=== PATIENT | female | born 1990 | race Caucasian/White ===

== ENCOUNTER 2017-11-22 02:34 | Inpatient (IN) ==
[2017-11-22 03:04] LABS: Appearance,Urine CLEAR (Clear); Bilirubin,Urine Negative (Negative); Blood, Urine Negative (Negative); Color,Urine YELLOW (Yellow); Glucose,Urine (UA) Negative (Negative); Ketones,Urine Negative (Negative); Leukocyte Esterase,Urine Negative (Negative); Microscopic, Urine URINE MICROSCOPIC (MICROSCOPIC); PH,Urine 5.5 (5.0-8.5); Protein,Urine Negative (Negative); Specific Gravity, Urine >= 1.030 (1.005-1.030); Urobilinogen,Urine 0.2 EU/dl (0.2)
[2017-11-22 03:14] LABS: Basophils % 0.2 % (0.1-2.0); Hematocrit 36.7 % (37.0-47.0); Hemoglobin 12.2 g/dL (12.2-16.2); Lymphocytes # 1.1 K/mm3 (0.7-4.5); Lymphocytes % 6.4 K/mm3 (10-50); Mean Corpuscular HGB Conc 33.3 g/dL (31.8-35.4); Mean Corpuscular Hemoglobin 28.5 pg (27.0-31.2); Mean Corpuscular Volume 85.7 fl (81-99); Monocytes # 0.4 K/mm3 (0.1-1.0); Monocytes % 2.2 % (1.7-9.3); Neutrophils # 16.3 K/mm3 (1.8-7.8); Neutrophils % 91.2 % (37.0-80.0); Platelet Count 275 K/mm3 (142-424); Red Blood Count 4.29 M/mm3 (4.20-5.40); Red Cell Distribution Width 14.7 % (11.5-17.5); White Blood Count 17.9 K/mm3 (4.8-10.8)
[2017-11-22 03:28] LABS: Bacteria,Urine 2+ /lpf; Mucus,Urine 1+ /lpf; Squamous Epithelial Cell,Urine Occasional #/hpf (0-5)
[2017-11-22 03:38] LABS: Albumin Level 3.6 gm/dL (3.4-5.0); Albumin/Globulin Ratio 1.3 (1.1-1.8); Anion Gap 8.9 mEq/L (5-15); Bilirubin,Total 0.2 mg/dL (0.2-1.0); Calcium 8.4 mg/dL (8.5-10.1); Globulin 2.7 gm/dl (1.3-3.2); Potassium 3.9 mmoL/L (3.5-5.1); Total Protein,Serum 6.3 gm/dL (6.4-8.2)
[2017-11-22 04:18] LABS: Anisocytosis 1+; Lymphocytes % 3 % (10-50); Neutrophils % 96 % (42-76); Total Cells Counted 100
--- NOTE | 2017-11-22 04:55 | Emergency Department Note ---
ED Disposition Clinical Impression: Pelvic mass in female Disposition: Admitted as Observation Condition on Discharge: Serious Instructions: DI for Acute Abdomen - Critical Care Critical Care Time: No Attestation: On 11/22/17, the high probability of a clinically significant, sudden or life threatening deterioration of the following system(s) required my full and direct attention, intervention and personal management. The time I documented below is in addition to time spent performing reported procedures but includes the following listed in this critical care notation. Medical Decision Making - Medical Records Medical records reviewed: Yes: I reviewed the patient's medical records. - Jonny Inquiry Pt receiving controlled substance: No Vital Signs: 11/22/17 02:39 Temperature 97.7 F Temperature Source Oral Pulse Rate [Right Brachial] 87 Respiratory Rate 16 Blood Pressure [Right Arm] 112/61 Blood Pressure Mean [Right Arm] 78 02 Sat by Pulse Oximetry 96 - Lab Data Lab results reviewed: Yes: I reviewed the patient's lab results. Lab Results 11/22/17 02:45: Urine Color Yellow, Urine Appearance Clear, Urine pH 5.5, Ur Specific [place] >= 1.030, Urine Protein Negative, Urine Glucose (UA) Negative, Urine Ketones Negative, Urine Blood Negative, Urine Nitrate Negative, Urine Bilirubin Negative, Urine Urobilinogen 0.2, Ur Leukocyte Esterase Negative, Urine WBC 3-5, Ur Squamous Epith Cells Occasional, Urine Bacteria 2+, Urine Mucus 1+ 11/22/17 02:45: Urine HCG, Qual Negative 11/22/17 03:09: WBC 17.9 H, RBC 4.29, Hgb 12.2, Hct 36.7 L, MCV 85.7, MCH 28.5, MCHC 33.3, RDW 14.7, Plt Count 275, MPV 9.0, Neut % (Auto) 91.2 H, Lymph % (Auto ) 6.4 L, [place] % (Auto) 2.2, Eos % (Auto) 0.0 L, Baso % (Auto) 0.2, Neut # (Auto ) 16.3 H, Lymph # (Auto) 1.1, [place] # (Auto) 0.4, Eos # (Auto) 0.0, Baso # (Auto ) 0.0, Total Counted 100, Neutrophils % (Manual) 96 H, Lymphocytes % (Manual) 3 L, Basophils % (Manual) 1.0, Platelet Estimate Normal, Anisocytosis 1+ 11/22/17 03:09: Sodium 135 L, Potassium 3.9, Chloride 103, Carbon Dioxide 27, Anion Gap 8.9, BUN 11, Creatinine 0.85, Estimated Creat Clear 93, Estimated GFR 81, Est GFR ( Amer) 99, Glucose 150 H, Calcium 8.4 L, Total Bilirubin 0.2 , AST 9 L, ALT 14, Alkaline Phosphatase 58, Total Protein 6.3 L, Albumin 3.6, Globulin 2.7, Albumin/Globulin Ratio 1.3, Amylase 45 11/22/17 03:09: Lipase 76 Result diagrams: 11/22/17 03:09 11/22/17 03:09 Orders (Tests/Meds): ED MEDICATIONS Discontinued Medications Generic Name Dose Route Start Last Admin Trade Name Freq PRN Reason Stop Dose Admin Sodium Chloride 1,000 mls @ 999 mls/hr 11/22/17 03:00 11/22/17 03:09 Sod Chlor 0.9% 1000ml Bag IV 11/22/17 04:00 999 mls/hr .Q1H1M TRINITY Administration Iopamidol 75 ml 11/22/17 03:55 11/22/17 03:57 [id number]; 75ml Vial IV 11/22/17 03:56 75 ml ONCE ONE Administration Protocol Ketorolac Tromethamine 30 mg 11/22/17 02:49 11/22/17 03:09 Toradol 30mg/Ml Vial IV 11/22/17 02:50 30 mg ONCE ONE Administration Sodium Chloride 10 ml 11/22/17 03:55 11/22/17 03:56 Rad-Saline Flush 10ml Syringe IV 11/22/17 03:56 10 ml ONCE ONE Administration ORDERS Category Date Time Status CT abdomen pelvis w con Stat Cat Scan 11/22/17 02:49 Taken Urine Culture Stat Micro 11/22/17 02:45 Received - CT Data CT Scan: Abdomen, Pelvis Time Received: 04:[address] Reviewed: Yes: I have viewed the radiologist's interpretation Preliminary Findings: Abnormal (lt ovarian mass) - Physician Consults Physician Consulted: devon Reason -: Admission Female Urogenital HPI - General Chief complaint: Abdominal Pain Stated complaint: stomach pain,no vomiting Time Seen by Provider: 11/22/17 02:40 Mode of Arrival: Wheelchair Source of Information: Patient Limitations: No Limitations Description of Symptoms (Recalled from ER Triage Doc. by RN): REPORTS SHARP STOMACH PAINS IN SAVITA LOWER QUADS, MORE PAIN ON THE RIGHT. REPORTS SHE HAS NOT HAD A TUBAL OR HYSTERECTOMY, AND STATES SHE HAD A TEST AT HOME RECENTLY THAT WAS NEGATIVE. SHE REPORTS THAT SHE HAS NOT ASSOCIATED VOMITING OR NAUSEA OR DIARRHEA. - History of Present Illness HPI Narrative: acute onset of lt sided abd pain /pelvic pain tonight - no fever or vaginal bleeding MD Complaint: pelvic pain Onset (ago): hour(s) Location: LLQ Severity: moderate Quality: sharp Relieving factors: none Exacerbating factors: none : unsure Associated symptoms: denies other symptoms - Related Data Home Medications Medication Instructions Recorded Confirmed No Known Home Medications 11/22/17 11/22/17 Allergies Allergy/AdvReac Type Severity Reaction Status Date / Time No Known Allergies Allergy Verified 11/22/17 03:10 [facility] History I have reviewed the patient's past medical history: Yes Medical History: Denies:: Cancer, Diabetes Mellitus Type 1, Diabetes Mellitus Type 2, MRSA Amputation: No Fractures: No - Social History Alcohol Intake: never - Psychiatric History Expresses thoughts of harming self/others: None Suicide Plan Description: No Plan ROS Obtained: Yes All systems reviewed & no additional complaints - Constitutional Constitutional: Denies fever(s) - Eyes Eyes: Denies change in vision - ENT Ears, Nose, Mouth, and Throat: Denies sore throat - Cardiovascular Cardiovascular: Denies chest pain - Respiratory Respiratory: No cough - Gastrointestinal Gastrointestingal: Reports: abdominal pain, nausea. Denies: black, tarry stools , vomiting - Genitourinary Female Genitourinary: Reports as per HPI, Denies abnormal vaginal bleeding, Denies hematuria, Reports pelvic pain, Denies urinary frequency - Musculoskeletal Musculoskeletal: Denies joint pain - Integumentary/Breasts Skin/Breast: Denies rash - Neurologic Neurologic: Denies headache(s), Denies seizure-like activity Physical Exam - General General appearance: in no apparent distress - Head Head exam: normocephalic - Eye Eye exam: Present: PERRL, EOMI - ENT ENT exam: Present: mucous membranes moist - Neck Neck exam: Present: trachea midline - Respiratory Respiratory exam: Present: normal lung sounds bilaterally. Absent: respiratory distress - Cardiovascular Cardiovascular exam: Present: regular rate - Abdominal Exam Abdominal exam: Present: soft, tenderness Abdominal tenderness: Present: LUQ, moderate - Extremities Exam Extremities exam: Present: full ROM - Back Exam Back exam: Absent: CVA tenderness (L) - Neurological Exam Neurological exam: Present: alert, oriented X3, CN II-XII intact - Psychiatric Psychiatric exam: Present: normal affect - Skin Skin exam: Absent: rash
[2017-11-22 06:02] LABS: Basophils % 0.1 % (0.1-2.0); Eosinophils % 0.1 % (0.1-12.0); Hematocrit 28.8 % (37.0-47.0); Lymphocytes # 1.1 K/mm3 (0.7-4.5); Lymphocytes % 6.7 K/mm3 (10-50); Mean Corpuscular HGB Conc 33.6 g/dL (31.8-35.4); Mean Corpuscular Hemoglobin 29.4 pg (27.0-31.2); Mean Corpuscular Volume 87.6 fl (81-99); Mean Platelet Volume 9.8 fl (7.4-10.4); Monocytes # 0.3 K/mm3 (0.1-1.0); Monocytes % 2.1 % (1.7-9.3); Neutrophils # 14.1 K/mm3 (1.8-7.8); Neutrophils % 90.9 % (37.0-80.0); Platelet Count 238 K/mm3 (142-424); Red Blood Count 3.29 M/mm3 (4.20-5.40); Red Cell Distribution Width 14.7 % (11.5-17.5); White Blood Count 15.6 K/mm3 (4.8-10.8)
[2017-11-22 06:08] LABS: Hemoglobin 9.7 g/dL (12.2-16.2)
--- NOTE | 2017-11-22 06:19 | Progress Note ---
Internal Medicine - PN: Subj *Date: 11/22/17 *Time: 06:12 (Was admitted to the emergency room early this morning with severe lower abdominal pain. (Please refer to the emergency room history and physical. ) Her white count in the emergency room was 17.9, with a left shift. She was afebrile. She states that she had a laparoscopy 8 years ago for an ovarian cyst (both ovaries remain in situ), and that she had a normal vaginal delivery in [facility] 18 months ago. She is currently using no contraception, but her test is negative. Her last normal menstrual period was about 4 weeks ago. She began having some mild intermittent lower abdominal pain a few days ago, and this became severe last evening at 2330. Ultimately she came to the emergency room. CT in the emergency room revealed an 8.8 cm complex midline hemorrhagic pelvic mass (likely ovarian, but laterality could not be determined). Her initial hemoglobin in the emergency room was 12.3 g; is now 9.7 g. Her blood pressure is low (90s over 40s). Her pulse rate is 103. Her abdomen is somewhat distended and there is guarding throughout her lower abdomen. Rebound tenderness in the midline. Intravenous antibiotics ( ampicillin, gentamicin, and clindamycin) have been ordered. I discussed with the patient the probable need for surgery, which would likely entail an exploratory laparotomy with possible unilateral salpingo-oophorectomy. She understands risks and benefits of this procedure and consents to it.) Exam Vital signs and Labs for Last 24 Hours: Temp Pulse Resp BP Pulse Ox 97.7 F 79 14 122/62 99 11/22/17 05:05 11/22/17 05:05 11/22/17 05:05 11/22/17 05:05 11/22/17 05:00 Laboratory Results - last 24 hr 11/22/17 02:45: Urine Color Yellow, Urine Appearance Clear, Urine pH 5.5, Ur Specific [place] >= 1.030, Urine Protein Negative, Urine Glucose (UA) Negative, Urine Ketones Negative, Urine Blood Negative, Urine Nitrate Negative, Urine Bilirubin Negative, Urine Urobilinogen 0.2, Ur Leukocyte Esterase Negative, Urine WBC 3-5, Ur Squamous Epith Cells Occasional, Urine Bacteria 2+, Urine Mucus 1+ 11/22/17 02:45: Urine HCG, Qual Negative 11/22/17 03:09: WBC 17.9 H, RBC 4.29, Hgb 12.2, Hct 36.7 L, MCV 85.7, MCH 28.5, MCHC 33.3, RDW 14.7, Plt Count 275, MPV 9.0, Neut % (Auto) 91.2 H, Lymph % (Auto ) 6.4 L, [place] % (Auto) 2.2, Eos % (Auto) 0.0 L, Baso % (Auto) 0.2, Neut # (Auto ) 16.3 H, Lymph # (Auto) 1.1, [place] # (Auto) 0.4, Eos # (Auto) 0.0, Baso # (Auto ) 0.0, Total Counted 100, Neutrophils % (Manual) 96 H, Lymphocytes % (Manual) 3 L, Basophils % (Manual) 1.0, Platelet Estimate Normal, Anisocytosis 1+ 11/22/17 03:09: Sodium 135 L, Potassium 3.9, Chloride 103, Carbon Dioxide 27, Anion Gap 8.9, BUN 11, Creatinine 0.85, Estimated Creat Clear 93, Estimated GFR 81, Est GFR ( Amer) 99, Glucose 150 H, Calcium 8.4 L, Total Bilirubin 0.2 , AST 9 L, ALT 14, Alkaline Phosphatase 58, Total Protein 6.3 L, Albumin 3.6, Globulin 2.7, Albumin/Globulin Ratio 1.3, Amylase 45 11/22/17 03:09: Lipase 76 11/22/17 05:48: WBC 15.6 H, RBC 3.29 L, Hgb 9.7 L D, Hct 28.8 L, MCV 87.6, MCH 29.4, MCHC 33.6, RDW 14.7, Plt Count 238, MPV 9.8, Neut % (Auto) 90.9 H, Lymph % (Auto) 6.7 L, [place] % (Auto) 2.1, Eos % (Auto) 0.1, Baso % (Auto) 0.1, Neut # ( Auto) 14.1 H, Lymph # (Auto) 1.1, [place] # (Auto) 0.3, Eos # (Auto) 0.0, Baso # ( Auto) 0.0 11/22/17 05:48: Crossmatch (AHG) See Detail I & O for Last 24 hours: Intake & Output 11/19/17 11/20/17 11/21/17 11/22/17 11:59 11:59 11:59 11:59 Intake Total 1200 / 1200 Balance 1200 / 1200 Weight 128 lb
[2017-11-22 06:53] LABS: Anion Gap 13.4 mEq/L (5-15); Potassium 4.4 mmoL/L (3.5-5.1)
--- NOTE | 2017-11-22 07:21 | Progress Note ---
[facility] Anesthesia Checklist - Patient Identification Patient Identification: Arm Band - Structural Data Admitted From: Inpatient Planned Operative Procedure/s: exploratory laparotomy Consent for Planned Operative Procedure(s) Verified: Yes Verified Documents: Surgical Consent, History and Physical - NPO Status Verified Time NPO: 00:00 - Additional verifications Anesthesia Reactions: No - Airway Assessment C-Spine Mobility Assessed: Yes (mp2) TMJ Mobility Assessed: Yes Dentition: Dentures-good fit (upper) - Neurological Assessment Level of Consciousness: Awake, Alert - Anesthesia Plan Anesthesia Risk discussed: Yes Anesthesia Plan: Verified ASA Class: II (e) Anesthesia Type: General [facility] Anesthesia HX I have reviewed the patient's past medical history: Yes Medical History: Denies:: Cancer, Diabetes Mellitus Type 1, Diabetes Mellitus Type 2, MRSA Other Medical History: Reports: Other (smoker) Other Surgeries: Yes: Other (ovarian cystectomy, right groin abcess) Amputation: No Fractures: No
--- NOTE | 2017-11-22 08:22 | Operative Note ---
Date of procedure: 11/22/17 Pre-op Diagnosis:: 1. Hemorrhagic adnexal mass. 2. Pelvic pain. Post-op Diagnosis:: 1. Pelvic pain. 2. Massive hemoperitoneum. 3. Hemorrhagic left ovarian cyst, leaking. 4. Right ovarian cyst. Procedure performed:: 1. Exploratory laparotomy. 2. Evacuation of massive hemoperitoneum. 3. Left ovarian cystectomy. 4. Aspiration of right ovarian cyst. 5. Intraoperative transfusion. Surgeon:: Keith Ricketts MD Biopsychologist(s):: RAJESH Lebron [address] TECHNICIAN:: Other (YAMILET Nova) Anesthesia: GETA Estimated blood loss (mL): 1,500 (Transfusion of 2 units of packed cells.) Operative findings:: 1. Massive hemoperitoneum. 2. Small right ovarian cyst. 3. Leaking hemorrhagic left ovarian cyst. Operative note:: After the patient was prepped and draped in usual fashion and general anesthesia was administered, a low Pfannenstiel incision was made across midline, and the fat and fascia was in usual fashion, bleeders being clamped and coagulated along the way. The peritoneum was entered with Metzenbaum scissors, and extended above and below. A large amount of blood and clots extruded. A self-retaining Ernesto retractor with bladder blade was placed. A massive hemoperitoneum (1500 cc) consisting of free blood and clots was evacuated, both manually and by suction. The uterus was of normal size and configuration. The right tube and ovary appeared normal, save for a 3 cm clear cyst at the distal pole of the right ovary. This was aspirated, and the puncture site fulgurated. On the left side, a 10-12 cm thin-walled hemorrhagic cyst was present at the distal pole of the ovary. The tube appeared normal. The cyst was able to be peeled away from the ovarian cortex, and submitted to pathology. Aerobic and anaerobic cultures were taken of the cul-de-sac fluid. There was still a large amount of residual blood in the upper abdomen, and this was suctioned. Because of oozing, a #10 flat Joss-Hickey drain was placed in the cul-de-sac, and brought out through a separate stab wound to the left of and above the Pfannenstiel incision. It was sewn in place, and attached to a grenade. The left ovary was oversewn with a running unlocked suture of 3-0 Vicryl, and was felt to be hemostatic. A piece of Interceed was placed over the ovary to obviate the formation of adhesions; however, this would not stay in place due to excessive moisture, and was removed. There was no other pathology noted. The peritoneum was grasped with 3 Marcella clamps, and closed with a running semi- locked suture of 0 Vicryl. The muscle was approximated with a running unlocked suture of 0 Vicryl. The fascia was closed with a running locked suture of #1 Vicryl. The subcutaneous fat and Lorraine's fascia were closed with a running locked suture of 2-0 Vicryl. The skin was closed with a subcuticular suture of 3-0 Vicryl, and appropriately dressed. The urine was clear in the Rios catheter. The sponge and needle count was ultimately correct. The estimated blood loss was 1500 cc. Transfusion of packed cells was begun in the OR and a second unit will be given in PACU. The wound was appropriately dressed. The EMMETT drain was draining well. The patient tolerated the procedure well, and will taken to PACU in stable condition. Condition: stable Disposition: PACU Specimens:: 1. Left ovarian cyst. 2. Thick cultures. Complications:: None
--- NOTE | 2017-11-22 08:39 | Progress Note ---
[facility] Anesthesia Record Part I Intake, IV Amount: 700 Estimated blood loss (mL): 1,500 Urine output (mL): 300 Blood Products used (#): none Blood Pressure: 121/62 SaO2: 99 Pulse Rate: 123 Respiratory Rate: 18 Temperature: 97.8 F Patient is:: Awake, Stable Stable to PACU at:: 08:30
--- NOTE | 2017-11-22 08:40 | Progress Note ---
[facility] Anesthesia Record Part II Discharge Time: 09:00 Destination: Medical Surgical Department PACU nurse assessment reviewed?: Yes Patient Condition:: Good Anesthesia Complications:: None
[2017-11-22 09:36] LABS: Hematocrit 32.9 % (37.0-47.0); Hemoglobin 10.9 g/dL (12.2-16.2)
--- NOTE | 2017-11-22 12:06 | Pharmacy Consult Notes ---
[facility] Pharmacy VTE Monitoring - Patient Demographics Admission date: 11/22/17 Report Date: 11/22/17 Time: 12:05 Allergies/Adverse Reactions: Patient Allergies No Known Allergies Allergy (Verified 11/22/17 03:10) Height: 1.6 m Weight: 58.06 kg Patient Problems: Current Active Problems Pelvic mass in female (Acute) - VTE Risk Labs: VTE Related Lab Results Hgb 10.9 g/dL (12.2-16.2) L D 11/22/17 08:55 Hct 32.9 % (37.0-47.0) L 11/22/17 08:55 Plt Count 238 K/mm3 (142-424) 11/22/17 05:48 BUN 10 mg/dL (7-18) 11/22/17 05:48 Creatinine 0.73 mg/dL (0.55-1.02) 11/22/17 05:48 Estimated Creat Clear 108 mL/min (0-300) 11/22/17 05:48 Was VTE Risk Assessment Performed: Yes VTE Score: 0 VTE Risk Level: Very Low Risk - Prophylaxis VTE Prophylaxis Ordered?: Yes Types of VTE Prophylaxis: IPCS Thigh High Location of Applied Device: Bilateral Lower Extremeties - VTE Diagnosis Confirmed Treatment or plan recommended: Continue Current Treatment
[2017-11-22 12:37] LABS: Hematocrit 33.4 % (37.0-47.0); Hemoglobin 11.3 g/dL (12.2-16.2)
--- NOTE | 2017-11-22 13:38 | Progress Note ---
Internal Medicine - PN: Subj *Date: 11/22/17 *Time: 13:37 (This is day of surgery. The patient is afebrile. Vital signs are stable. She feels much better. Abdomen is soft. Surgery has been explained to the patient. Hemoglobin is greater than 11 g after 2 units of packed cells. Impression: Stable.) Exam Vital signs and Labs for Last 24 Hours: Temp Pulse Resp BP Pulse Ox 99.0 F 99 H 18 98/49 98 11/22/17 13:15 11/22/17 13:15 11/22/17 13:15 11/22/17 13:15 11/22/17 13:15 Laboratory Results - last 24 hr 11/22/17 02:45: Urine Color Yellow, Urine Appearance Clear, Urine pH 5.5, Ur Specific [place] >= 1.030, Urine Protein Negative, Urine Glucose (UA) Negative, Urine Ketones Negative, Urine Blood Negative, Urine Nitrate Negative, Urine Bilirubin Negative, Urine Urobilinogen 0.2, Ur Leukocyte Esterase Negative, Urine WBC 3-5, Ur Squamous Epith Cells Occasional, Urine Bacteria 2+, Urine Mucus 1+ 11/22/17 02:45: Urine HCG, Qual Negative 11/22/17 03:09: WBC 17.9 H, RBC 4.29, Hgb 12.2, Hct 36.7 L, MCV 85.7, MCH 28.5, MCHC 33.3, RDW 14.7, Plt Count 275, MPV 9.0, Neut % (Auto) 91.2 H, Lymph % (Auto ) 6.4 L, [place] % (Auto) 2.2, Eos % (Auto) 0.0 L, Baso % (Auto) 0.2, Neut # (Auto ) 16.3 H, Lymph # (Auto) 1.1, [place] # (Auto) 0.4, Eos # (Auto) 0.0, Baso # (Auto ) 0.0, Total Counted 100, Neutrophils % (Manual) 96 H, Lymphocytes % (Manual) 3 L, Basophils % (Manual) 1.0, Platelet Estimate Normal, Anisocytosis 1+ 11/22/17 03:09: Sodium 135 L, Potassium 3.9, Chloride 103, Carbon Dioxide 27, Anion Gap 8.9, BUN 11, Creatinine 0.85, Estimated Creat Clear 93, Estimated GFR 81, Est GFR ( Amer) 99, Glucose 150 H, Calcium 8.4 L, Total Bilirubin 0.2 , AST 9 L, ALT 14, Alkaline Phosphatase 58, Total Protein 6.3 L, Albumin 3.6, Globulin 2.7, Albumin/Globulin Ratio 1.3, Amylase 45 11/22/17 03:09: Lipase 76 11/22/17 05:48: WBC 15.6 H, RBC 3.29 L, Hgb 9.7 L D, Hct 28.8 L, MCV 87.6, MCH 29.4, MCHC 33.6, RDW 14.7, Plt Count 238, MPV 9.8, Neut % (Auto) 90.9 H, Lymph % (Auto) 6.7 L, [place] % (Auto) 2.1, Eos % (Auto) 0.1, Baso % (Auto) 0.1, Neut # ( Auto) 14.1 H, Lymph # (Auto) 1.1, [place] # (Auto) 0.3, Eos # (Auto) 0.0, Baso # ( Auto) 0.0 11/22/17 05:48: Sodium 139, Potassium 4.4, Chloride 107, Carbon Dioxide 23, Anion Gap 13.4, BUN 10, Creatinine 0.73, Estimated Creat Clear 108, Estimated GFR 97, Est GFR ( Amer) 118, Glucose 126 H, Calcium 7.0 L D 11/22/17 05:48: Blood Type A Positive, Antibody Screen Negative, Crossmatch (AHG ) See Detail 11/22/17 08:55: Blood Type Confirm A Positive 11/22/17 08:55: Hgb 10.9 L D, Hct 32.9 L 11/22/17 12:21: Hgb 11.3 L, Hct 33.4 L I & O for Last 24 hours: Intake & Output 11/20/17 11/21/17 11/22/17 11/23/17 11:59 11:59 11:59 11:59 Intake Total 2320 / 2320 Output Total 575 / 575 75 / 75 Balance 1745 / 1745 -75 / -75 Weight 128 lb 128 lb
[2017-11-23 05:59] LABS: Hematocrit 28.8 % (37.0-47.0)
[2017-11-23 06:09] LABS: Hemoglobin 9.7 g/dL (12.2-16.2)
--- NOTE | 2017-11-23 07:35 | Progress Note ---
Internal Medicine - PN: Subj *Date: 11/23/17 *Time: 07:34 (This is postop day #1. The patient is afebrile. Vital signs stable. Wound clean. Abdomen soft. EMMETT drain drained 100 cc of watery fluid overnight. Her Rios is out and she has voided well. Hemoglobin dropped slightly to 9.7 g, but she is clinically stable. Plan is to increase diet and ambulate today.) Exam Vital signs and Labs for Last 24 Hours: Temp Pulse Resp BP Pulse Ox 98.3 F 83 18 95/53 98 11/22/17 19:30 11/22/17 19:30 11/22/17 19:30 11/23/17 06:45 11/22/17 19:30 Laboratory Results - last 24 hr 11/22/17 05:48: Blood Type A Positive, Antibody Screen Negative, Crossmatch (AHG ) See Detail 11/22/17 08:55: Blood Type Confirm A Positive 11/22/17 08:55: Hgb 10.9 L D, Hct 32.9 L 11/22/17 12:21: Hgb 11.3 L, Hct 33.4 L 11/23/17 05:49: Hgb 9.7 L D, Hct 28.8 L I & O for Last 24 hours: Intake & Output 11/20/17 11/21/17 11/22/17 11/23/17 11:59 11:59 11:59 11:59 Intake Total 2320 / 2320 1008 / 1008 Output Total 875 / 875 1795 / 1795 Balance 1445 / 1445 -787 / -787 Weight 128 lb 128 lb Microbiology Reports for the Last 24 Hours: Microbiology 11/22/17 02:45 Urine,Clean Catch Urine Culture - Final Multiple organisms, suggests contamination. 11/22/17 Unknown Peritoneal Fluid Gram Stain - Final
[2017-11-23 16:07] LABS: Hemoglobin 9.7 g/dL (12.2-16.2)
--- NOTE | 2017-11-24 06:43 | Progress Note ---
Internal Medicine - PN: Subj *Date: 11/24/17 *Time: 06:42 (This is postop day #2. The patient is afebrile. Vital signs stable. Wound clean. Abdomen soft. Hemoglobin stable at 9.7 g. She is eating and ambulating and passing flatus. Her EMMETT drain has been removed. The plan is to observe post drain removal and possibly discharge later today.) Exam Vital signs and Labs for Last 24 Hours: Temp Pulse Resp BP Pulse Ox 98.0 F 71 18 97/52 98 11/24/17 05:30 11/24/17 05:30 11/24/17 05:30 11/24/17 05:30 11/23/17 23:34 Laboratory Results - last 24 hr 11/23/17 16:00: Hgb 9.7 L, Hct 29.0 L I & O for Last 24 hours: Intake & Output 11/21/17 11/22/17 11/23/17 11/24/17 11:59 11:59 11:59 11:59 Intake Total 2320 / 2320 1008 / 1008 Output Total 875 / 875 1795 / 1795 85 / 85 Balance 1445 / 1445 -787 / -787 -85 / -85 Weight 128 lb 128 lb Microbiology Reports for the Last 24 Hours: Microbiology 11/22/17 Unknown Peritoneal Fluid Gram Stain - Final 11/22/17 Unknown Peritoneal Fluid Body Fluid Culture - Preliminary NO GROWTH AFTER 24 HOURS 11/22/17 02:45 Urine,Clean Catch Urine Culture - Final Multiple organisms, suggests contamination.
--- NOTE | 2017-11-24 12:26 | Progress Note ---
Internal Medicine - PN: Subj *Date: 11/24/17 *Time: 12:25 (The patient is afebrile. Vital signs stable. Wounds clean. Abdomen soft. Eating and ambulating and has had a bowel movement. She will be discharged today.) Exam Vital signs and Labs for Last 24 Hours: Temp Pulse Resp BP Pulse Ox 97.9 F 80 16 101/61 98 11/24/17 08:20 11/24/17 08:20 11/24/17 08:20 11/24/17 08:20 11/24/17 08:20 Laboratory Results - last 24 hr 11/23/17 16:00: Hgb 9.7 L, Hct 29.0 L I & O for Last 24 hours: Intake & Output 11/22/17 11/23/17 11/24/17 11/25/17 11:59 11:59 11:59 11:59 Intake Total 2320 / 2320 1008 / 1008 Output Total 875 / 875 1795 / 1795 85 / 85 Balance 1445 / 1445 -787 / -787 -85 / -85 Weight 128 lb 128 lb Microbiology Reports for the Last 24 Hours: Microbiology 11/22/17 Unknown Peritoneal Fluid Gram Stain - Final 11/22/17 Unknown Peritoneal Fluid Body Fluid Culture - Preliminary NO GROWTH AFTER 24 HOURS
--- NOTE | 2017-11-24 12:29 | Discharge Summary ---
General - General Admission date:: 11/22/17 Discharge date: 11/24/17 (This 27-year-old 1, para 1, Ab0 white female was admitted to the emergency room with severe lower abdominal pain and a large pelvic mass. test was negative. Her initial hemoglobin of 12.2 g drop to 9.2 g within a few hours, and she was taken to the operating room she underwent an exploratory laparotomy with evacuation of a massive hemoperitoneum (at least 1500 cc), with a left ovarian cystectomy and aspiration of a small right ovarian cyst. She was transfused 2 units of packed cells, and her hemoglobin stabilized at 9.7 g. Postoperatively, the patient is done well. She is eating and elevating, and has had a bowel movement. Her wounds are clean. Her EMMETT drain (placed at surgery) has been removed. She is discharged home on the second postoperative day on iron and vitamins, and on Percocet 5/ 325 (#20), 1 p.o. every 4-6 hours as needed pain. She is given appropriate instructions as to diet, exercise, and wound care, and she is to return the office in 2 weeks for follow-up. She is not a walker.) Objective Vital signs: Temp Pulse Resp BP Pulse Ox 97.9 F 80 16 101/61 98 11/24/17 08:20 11/24/17 08:20 11/24/17 08:20 11/24/17 08:20 11/24/17 08:20 Results Labs on day of discharge: Labs from last 24 hours 11/23/17 16:00 Hgb 9.7 L Hct 29.0 L Preliminary micro results at discharge 11/22/17 Unknown Body Fluid Culture - Preliminary Peritoneal Fluid NO GROWTH AFTER 24 HOURS Discharge Plan - Patient Discharge Instructions Patient Instructions: How to Care for a Surgical Wound, Exploratory Laparotomy - Follow up Plan Home Medications: Home Medications Medication Instructions Recorded Confirmed Type Amoxicillin [Amoxicillin 500mg 500 mg PO BID 11/22/17 11/22/17 History Cap] Erythromycin Base [Erythromycin 1 applicatio EYE-BOTH DIRECTED 11/22/1711/22 History 3.5gm opth oinment] Prescriptions/Medication Reconciliation: No Action Amoxicillin [Amoxicillin 500mg Cap] 500 mg PO BID Erythromycin Base [Erythromycin 3.5gm opth oinment] 1 applicatio EYE-BOTH DIRECTED
== END 2017-11-24 12:45 | disposition home or self-care (01) ==
LOC: ER 02:34 → OB 02:34 → OBSVTOIN 05:05 → OB 05:06
PROVIDERS: ADMIT Obstetrics & Gynecology; ATTEND Obstetrics & Gynecology

== ENCOUNTER → 2017-12-08 16:15 | Outpatient (CLI) | payer MEDICAID, SELFPAY ==
[2017-12-08 17:21] LABS: Hematocrit 38.6 % (37.0-47.0); Hemoglobin 12.7 g/dL (12.2-16.2)
== END ==
PROVIDERS: PCP Obstetrics & Gynecology; Visit Provider Obstetrics & Gynecology
DX: N83.209 Unspecified ovarian cyst, unspecified side (principal); Z48.89 Encounter for other specified surgical aftercare
CPT/HCPCS: 36415; 85014; 85018

== ENCOUNTER 2021-07-24 09:20 | Emergency (ER) | payer MEDICAID, SELFPAY ==
[2021-07-24 09:21] VITALS: BP 122/76; PULSE 101; RESP 16; TEMP 36.7; O2SAT 98; BMI 24.7
--- NOTE | 2021-07-24 09:50 | [facility].EDSKAF ---
ED Disposition Clinical Impression: Abscess of skin or subcutaneous tissue Qualifiers: Site of cutaneous abscess: extremity Site of cutaneous abscess of extremity: lower extremity Laterality: right Qualified Code(s): L02.415 - Cutaneous abscess of right lower limb Disposition: Home, Self-Care Condition on Discharge: Good Instructions: DI for Skin Abscess Prescriptions: Sulfamethoxazole/Trimethoprim [Bactrim DS tablet] 1 each PO BID #14 tab Transmission Status: Pending to [facility]/pharmacy #[id number] Referrals: Provider,Referral, [Primary Care Provider] - - Critical Care Critical Care Time: No Attestation: On 07/24/21, the high probability of a clinically significant, sudden or life threatening deterioration of the following system(s) required my full and direct attention, intervention and personal management. The time I documented below is in addition to time spent performing reported procedures but includes the following listed in this critical care notation. Medical Decision Making - Medical Records Medical records reviewed: Yes: I reviewed the patient's medical records. - Jonny Inquiry Pt receiving controlled substance: No Vital Signs: 07/24/21 09:21 Temperature 98.1 F Temperature Source Oral Pulse Rate [Radial] 101 H Respiratory Rate 16 Blood Pressure [Right Arm] 122/76 Blood Pressure Mean [Right Arm] 91 Blood Pressure Position [Right Arm] Sitting 02 Sat by Pulse Oximetry 98 Oxygen Delivery Method Room Air - Reevaluation(s) Time: 09:52 Reevaluation #1: Patient tolerated procedure well. Packing needs to be removed in 24 hours. Continue antibiotic therapy. Needs follow-up within 48 hours. Given strict return precautions. Verbalized understanding. Medical Decision Narrative: 31-year-old female presented to the emergency department with an abscess in the right groin. I did perform bedside ultrasound. She does have a area of loculated fluid collection. She will require incision and drainage. Skin/Abscess/FB HPI - General Chief complaint: Skin/Abscess/Foreign Body Stated complaint: possible abscess on right leg Time Seen by Provider: 07/24/21 09:30 Mode of Arrival: Ambulatory Limitations: No Limitations Description of Symptoms (Recalled from ER Triage Doc. by RN): TO ED PER PVT CAR WITH C/O ABSCESS RT GROIN AREA X 4 DAYS GETTING PROGRESSIVELY WORSE. DENIES ANY DRAINAGE. PT STATES HX OF SAME WITH LAST ONE ON LT SIDE APPROX 6 MONTHS AGO. STATES USING WARM COMPRESSES AT HOME WITH NO RELIEF. DENIES ANY FEVER, CHILLS, NAUSEA, VOMITING - History of Present Illness HPI narrative: Is a 31-year-old female presenting with an abscess to the right groin area. Patient has had a history of abscesses in the past before. She has had it for the last 4 days. She states that it started as a small bump it has grown since then. Is very tender to palpation. She has not had any discharge. Denies any fevers or chills. No chest pain or shortness of breath. No abdominal pain or vomiting. No diarrhea. - Related Data Home Medications Medication Instructions Recorded Confirmed etonogestrel 68 mg subdermal SUBDERMAL each 12/29/17 implant Previous Rx's Medication Instructions Recorded Sulfamethoxazole/Trimethoprim 1 each PO BID #14 tab 07/24/21 [Bactrim DS tablet] Allergies Allergy/AdvReac Type Severity Reaction Status Date / Time No Known Allergies Allergy Verified 12/22/17 14:55 [facility] History - Hepatitis A Screen Drug use history?: No High risk sexual behaviors?: No History of sexually transmitted infection?: No Currently employed?: No Childcare worker?: No Do you have indoor plumbing?: Yes Do you have electricity?: Yes Attestation statement:: This patient has been screened for Hepatitis A risk factors. I have reviewed the patient's past medical history: Yes Medical History: Denies:: Cancer, Diabetes Mellitus Type 1, Diabetes Mellitus Type 2, MRSA Other Medical Hist
[2021-07-24 09:54] VITALS: BP 109/70; PULSE 94; RESP 16; O2SAT 99
[2021-07-24 10:33] VITALS: BP 122/74; PULSE 78; RESP 16; TEMP 36.6; O2SAT 98
== END 2021-07-24 10:34 | disposition home or self-care (01) ==
PROVIDERS: Emergency Provider Emergency Medicine
DX: L02.415 Cutaneous abscess of right lower limb (principal); F17.210 Nicotine dependence, cigarettes, uncomplicated
CPT/HCPCS: 10060; 99282